=== PATIENT | female | born 1935 | race Caucasian/White ===

== ENCOUNTER 2021-06-18 11:45 | Inpatient (IN) | payer MEDICARE, OTHER ==
[~2021-06-18] VITALS: Ht 165.1 cm; Wt 86.2 kg
[2021-06-18 14:49] LABS: HEMATOCRIT 31.1 % (31.2-41.9); MEAN CORPUSCULAR HEMOGLOBIN 29.4 uug (24.7-32.8); MEAN CORPUSCULAR VOLUME 90.7 fL (75.5-95.3); PLATELET COUNT (AUTO) 271 K/uL (179-408)
[2021-06-18 14:59] LABS: CREATININE 0.7 mg/dL (0.6-1.3); POTASSIUM 4.4 mmol/L (3.5-5.1)
[2021-06-18] MEDS ORDERED: PIPERACILLIN SODIUM/TAZOBACTAM 3.375 G in IV DEXTROSE 5% 50 ML IV ONE (15:00)
[2021-06-18] MEDS ORDERED: VANCOMYCIN 1G/D5W 200 ML PIGGYBACK IV ONE (15:00)
[2021-06-18] MEDS ORDERED: AZITHROMYCIN IV 500 MG in IV DEXTROSE 5% 250 ML IV ONE (15:00)
[2021-06-18] MEDS ORDERED: AZITHROMYCIN 500MG/ D5W 250ML IVPB **ER PYXIS ONLY IV ONE (15:12)
[2021-06-18] MEDS ORDERED: PIPERACILLIN/TAZOBACTAM/D5W 50 ML IV ONE (15:12)
[2021-06-18] MEDS ORDERED: VANCOMYCIN IV 200 ML ONE (15:13)
[2021-06-18 15:14] LABS: BILIRUBIN,DIRECT 0.3 mg/dL (0.0-0.2); BILIRUBIN,TOTAL 0.7 mg/dL (0.2-1.0); TOTAL PROTEIN, SERUM 6.5 g/dL (6.4-8.2)
[2021-06-18] MEDS ORDERED: ENOXAPARIN SODIUM 80 MG/0.8 ML DISP.SYRIN SQ ONE (17:15)
[2021-06-18] MEDS ORDERED: ENOXAPARIN SODIUM 100 MG/ML DISP.SYRIN SQ ONE ×2 (17:15→17:28)
[2021-06-18] MEDS ORDERED: ASPIRIN 81 MG TAB.CHEW GT ONE (19:00)
[2021-06-18] MEDS ORDERED: ASPIRIN 300 MG RECTAL SUPP RC ONE ×2 (20:00→23:00)
[2021-06-19 06:13] LABS: HEMATOCRIT 28.3 % (31.2-41.9); MEAN CORPUSCULAR HEMOGLOBIN 29.8 uug (24.7-32.8); PLATELET COUNT (AUTO) 238 K/uL (179-408)
[2021-06-19 06:27] LABS: CREATININE 0.7 mg/dL (0.6-1.3); MAGNESIUM 1.9 mg/dL (1.8-2.4); PHOSPHOROUS 3.5 mg/dL (2.5-4.9); POTASSIUM 3.6 mmol/L (3.5-5.1)
[2021-06-19 06:37] LABS: ABG BASE EXCESS 4.4 mmol/L; ABG HCO3 27.1 mmol/L; ABG PCO2 33.4 mmHg (35.0-45.0); ABG PH 7.527 (7.350-7.450); ABG PO2 69.4 mmHg (75.0-100.0); ABG SITE RIGHT BRACHIAL; COHb 0.3 % (0.5-1.5); MetHb 0.1 % (0.0-1.5); O2Hb 94.3 % (94.0-97.0); VENT MODE VENT - A/C; VT, ABG 500 mL
[2021-06-19] MEDS ORDERED: ASPIRIN 81 MG TAB.CHEW ONE (10:08)
[2021-06-19] MEDS ORDERED: ENOXAPARIN SODIUM 80 MG/0.8 ML DISP.SYRIN SQ ONE ×2 (10:08→21:26)
[2021-06-19] MEDS: ASPIRIN 81 MG TAB.CHEW PO SCH (10:13)
[2021-06-19] MEDS: ENOXAPARIN SODIUM 80 MG/0.8 ML DISP.SYRIN SQ SCH ×2 (10:13→21:26)
[2021-06-19] MEDS ORDERED: DIGOXIN 500 MCG/2 ML AMP IV ONE (10:15)
[2021-06-19] MEDS ORDERED: DIGOXIN 500 MCG/2 ML AMP ONE (10:27)
[2021-06-19] MEDS ORDERED: AMIODARONE HCL IV 150 MG in IV DEXTROSE 5% 100 ML IV ONE (10:30)
[2021-06-19] MEDS: AMIODARONE HCL IV 450 MG in IV DEXTROSE 5% 250 ML IV PRN ×2 (10:54→19:01)
[2021-06-19] MEDS: ATORVASTATIN 40 MG TABLET PO SCH (21:26)
[2021-06-19] MEDS ORDERED: ATORVASTATIN 40 MG TABLET ONE (21:26)
[2021-06-20] MEDS ORDERED: AMIODARONE HCL 150 MG/3 ML VIAL IV ONE (04:31)
[2021-06-20 05:36] LABS: HEMATOCRIT 28.2 % (31.2-41.9); MEAN CORPUSCULAR HEMOGLOBIN 29.7 uug (24.7-32.8); MEAN CORPUSCULAR VOLUME 90.3 fL (75.5-95.3); PLATELET COUNT (AUTO) 245 K/uL (179-408)
[2021-06-20 06:01] LABS: CREATININE 0.6 mg/dL (0.6-1.3); MAGNESIUM 1.9 mg/dL (1.8-2.4); PHOSPHOROUS 4.2 mg/dL (2.5-4.9); POTASSIUM 3.5 mmol/L (3.5-5.1)
[2021-06-20] MEDS: ASPIRIN 81 MG TAB.CHEW PO SCH (08:59)
[2021-06-20] MEDS ORDERED: ASPIRIN 81 MG TAB.CHEW ONE (09:07)
[2021-06-20] MEDS ORDERED: ENOXAPARIN SODIUM 80 MG/0.8 ML DISP.SYRIN SQ ONE (09:07)
[2021-06-20] MEDS: ENOXAPARIN SODIUM 80 MG/0.8 ML DISP.SYRIN SQ SCH (09:14)
[2021-06-20] MEDS ORDERED: HEPARIN/D5W DRIP 500 ML IV PRN (11:15)
[2021-06-20] MEDS ORDERED: AMIODARONE HCL 200 MG TABLET GT SCH (12:00)
[2021-06-20] MEDS ORDERED: APIXABAN 5 MG TABLET PO SCH (12:15)
[2021-06-20] MEDS ORDERED: POTASSIUM CHLORIDE 20 MEQ POWDER PACKET ONE (12:16)
[2021-06-20] MEDS ORDERED: AMIODARONE HCL 200 MG TABLET ONE (12:16)
[2021-06-20] MEDS ORDERED: POTASSIUM CHLORIDE 20 MEQ POWDER PACKET GT ONE (12:30)
[2021-06-20] MEDS ORDERED: CRAN3875 GT (18:43)
[2021-06-20] MEDS ORDERED: SUCR1ORA GT (18:43)
[2021-06-20] MEDS ORDERED: SOTA80TA GT (18:43)
[2021-06-20] MEDS ORDERED: INSU100V42 SQ (18:43)
[2021-06-20] MEDS ORDERED: OMEP20CA15 GT (18:43)
[2021-06-20] MEDS ORDERED: CRANBERRY CAP GT (18:43)
[2021-06-20] MEDS ORDERED: HYDR-3976 GT (18:43)
[2021-06-20] MEDS ORDERED: ACET-73 GT (18:43)
[2021-06-20] MEDS ORDERED: MAGN400O6 GT (18:43)
[2021-06-20] MEDS ORDERED: BISA10SU61 RC (18:43)
[2021-06-20] MEDS ORDERED: ALBU2.5V38 NEB (18:43)
[2021-06-20] MEDS ORDERED: ACET-2154 GT ×2 (18:43)
[2021-06-20] MEDS ORDERED: AMIN30LI2 GT (18:43)
[2021-06-20] MEDS ORDERED: DOCU100C36 GT (18:43)
[2021-06-20] MEDS ORDERED: DEXT38GE12 GT (18:43)
[2021-06-20] MEDS ORDERED: FERR325T28 GT (18:43)
[2021-06-20] MEDS ORDERED: CRAN425C6 GT (18:43)
[2021-06-20] MEDS ORDERED: ALBU2.5V13 NEB (18:43)
[2021-06-20] MEDS ORDERED: ASCO500C18 GT (18:43)
[2021-06-20] MEDS ORDERED: HYDR-3972 GT (18:43)
[2021-06-20] MEDS: APIXABAN 5 MG TABLET PO SCH (21:31)
[2021-06-20] MEDS: ATORVASTATIN 40 MG TABLET PO SCH (21:31)
[2021-06-20] MEDS ORDERED: ATORVASTATIN 40 MG TABLET ONE (21:32)
[2021-06-21] MEDS: LORAZEPAM 2 MG/1 ML VIAL IV PRN ×2 (05:28→11:53)
[2021-06-21] MEDS ORDERED: LORAZEPAM 2 MG/1 ML VIAL ONE ×2 (05:33→11:59)
[2021-06-21] MEDS ORDERED: ASPIRIN 81 MG TAB.CHEW ONE (09:21)
[2021-06-21] MEDS: APIXABAN 5 MG TABLET PO SCH ×2 (09:22→21:10)
[2021-06-21] MEDS: ASPIRIN 81 MG TAB.CHEW GT SCH (09:22)
[2021-06-21] MEDS ORDERED: ASPI81TA31 GT (18:52)
[2021-06-21] MEDS ORDERED: ATOR40TA PO (18:52)
[2021-06-21] MEDS ORDERED: APIX5TAB PO (18:52)
[2021-06-21] MEDS: ATORVASTATIN 40 MG TABLET PO SCH (21:10)
[2021-06-21] MEDS ORDERED: ATORVASTATIN 40 MG TABLET ONE (21:15)
[2021-06-22 05:26] LABS: MEAN CORPUSCULAR HEMOGLOBIN 29.6 uug (24.7-32.8); MEAN CORPUSCULAR VOLUME 89.7 fL (75.5-95.3); PLATELET COUNT (AUTO) 247 K/uL (179-408)
[2021-06-22 05:36] LABS: CARBON DIOXIDE 28 mmol/L (21-32); CHLORIDE 103 mmol/L (98-107); CREATININE 0.4 mg/dL (0.6-1.3); GLUCOSE 78 mg/dL (74-106); MAGNESIUM 1.8 mg/dL (1.8-2.4); PHOSPHOROUS 4.1 mg/dL (2.5-4.9); POTASSIUM 3.6 mmol/L (3.5-5.1); UREA NITROGEN, BLOOD 15 mg/dL (7-18)
[2021-06-22 08:03] LABS: ABG BASE EXCESS 0.2 mmol/L; ABG HCO3 23.7 mmol/L; ABG PCO2 34.2 mmHg (35.0-45.0); ABG PH 7.459 (7.350-7.450); ABG PO2 92.5 mmHg (75.0-100.0); ABG SITE LEFT BRACHIAL; ABG TOTAL HEMOGLOBIN 9.8 G/dL (12.0-16.0); COHb 0.3 % (0.5-1.5); MetHb 0.3 % (0.0-1.5); O2Hb 96.6 % (94.0-97.0); VENT MODE VENT - A/C; VT, ABG 500 mL
[2021-06-22] MEDS: APIXABAN 5 MG TABLET PO SCH (09:00)
[2021-06-22] MEDS: ASPIRIN 81 MG TAB.CHEW GT SCH (09:00)
[2021-06-22] MEDS ORDERED: ASPIRIN 81 MG TAB.CHEW ONE (10:14)
[2021-06-22 16:37] VITALS: BP 134/71
== END 2021-06-22 17:47 | DRG 280 ==
LOC: ER 11:45 → TRANSITION 06-19 03:46
PROVIDERS: ADMIT Nurse Practitioner Acute Care; ATTEND Nurse Practitioner Acute Care
PROC: 5A1945Z Respiratory Ventilation, 24-96 Consecutive Hours (ICD-10-PCS; principal; 2021-06-19)
PROC: 05HY33Z Insertion of Infusion Device into Upper Vein, Percutaneous Approach (ICD-10-PCS; 2021-06-19)
DX: I11.0 Hypertensive heart disease with heart failure (principal); G93.41 Metabolic encephalopathy; I21.A1 Myocardial infarction type 2; I50.33 Acute on chronic diastolic (congestive) heart failure; R53.2 Functional quadriplegia; J96.12 Chronic respiratory failure with hypercapnia; J96.11 Chronic respiratory failure with hypoxia; I48.0 Paroxysmal atrial fibrillation; I25.10 Atherosclerotic heart disease of native coronary artery without angina pectoris; E11.9 Type 2 diabetes mellitus without complications; K21.9 Gastro-esophageal reflux disease without esophagitis; R13.10 Dysphagia, unspecified; Z93.1 Gastrostomy status; Z20.822 Contact with and (suspected) exposure to COVID-19
CPT/HCPCS: 36415; 36600; 70030-TC; 71045; 83605; 83735; 84100; 85025; 85610; 85730; 87040; 87400; 93005; 94003; A4663; G0378; J0282; J0456; J1160; J1650; J2060; J2543; J3370; J7060